=== PATIENT | female | born 1955 | race Caucasian/White ===

== ENCOUNTER → 2016-11-06 | Outpatient (CLI) | payer BC | END | disposition home or self-care (01) | LOC: CFH 10:05 | PROVIDERS: ATTEND Internal Medicine | DX: R92.2 Inconclusive mammogram (principal); N60.01 Solitary cyst of right breast | CPT/HCPCS: 76377; 76642 ==

== ENCOUNTER 2021-02-13 08:34 | Outpatient (CLI) | payer BC | END 2021-02-13 23:59 | disposition home or self-care (01) | LOC: RAD 08:34 | PROVIDERS: ATTEND Nurse Practitioner Primary Care | DX: R79.9 Abnormal finding of blood chemistry, unspecified (principal); E83.110 Hereditary hemochromatosis | CPT/HCPCS: 76700 ==

== ENCOUNTER 2021-02-13 08:48 | Outpatient (CLI) | payer BC | END 2021-02-13 23:59 | disposition home or self-care (01) | LOC: CVU 08:48 | PROVIDERS: ATTEND Nurse Practitioner Primary Care | DX: I36.1 Nonrheumatic tricuspid (valve) insufficiency (principal); E05.00 Thyrotoxicosis with diffuse goiter without thyrotoxic crisis or storm; R79.9 Abnormal finding of blood chemistry, unspecified; E83.110 Hereditary hemochromatosis; Z79.899 Other long term (current) drug therapy | CPT/HCPCS: 93306; 93356 ==